=== PATIENT | female | born 2000 | race Caucasian/White ===

== ENCOUNTER 2022-10-19 13:22 | Emergency (ER) | payer BC ==
[~2022-10-19] VITALS: Ht 182.9 cm; Wt 104.5 kg
[2022-10-19 14:33] LABS: BASO % 0.3 % (0.0-1.0); EOS # 0.2 10^3/uL (0.0-0.5); EOS % 2.5 % (0.0-3.0); HEMATOCRIT 41.7 % (36.0-47.0); HEMOGLOBIN 13.6 g/dl (12.0-15.5); LYMPH # 1.2 10^3/uL (1.5-5.0); LYMPH % 18.6 % (24.0-44.0); MEAN CORPUSCULAR HEMOGLOBIN 27.8 pg (27.0-33.0); MEAN CORPUSCULAR HGB CONC 32.6 g/dl (32.0-36.5); MEAN CORPUSCULAR VOLUME 85.3 fl (80.0-96.0); MONO # 0.4 10^3/uL (0.0-0.8); NEUTROPHILS # 4.6 10^3/uL (1.5-8.5); NEUTROPHILS % 72.3 % (36.0-66.0); PLATELET COUNT, AUTOMATED 312 10^3/uL (150-450); RED BLOOD COUNT 4.89 10^6/uL (4.00-5.40); WHITE BLOOD COUNT 6.3 10^3/uL (4.0-10.0)
[2022-10-19] MEDS ORDERED: NS 1,000 ML IV ONE (14:50)
[2022-10-19 15:05] LABS: RSV AMPLIFICATION NEGATIVE (NEGATIVE)
[2022-10-19 15:07] LABS: FREE T4 1.26 NG/DL (0.89-1.76); THYROID STIMULATING HORMONE 0.601 uIU/ML (0.55-4.78)
[2022-10-19] MEDS ORDERED: ONDANSETRON 4MG 2ML VIAL IV ONE (15:35)
[2022-10-19 16:48] VITALS: BP 138/82
== END 2022-10-19 17:11 | disposition home or self-care (01) ==
LOC: M ED 13:22
DX: S00.83XA Contusion of other part of head, initial encounter (principal); W19.XXXA Unspecified fall, initial encounter; Y92.89 Other specified places as the place of occurrence of the external cause; Y93.89 Activity, other specified; Y99.8 Other external cause status; C73 Malignant neoplasm of thyroid gland
CPT/HCPCS: 70450; 70486; 80047; 81001; 84439; 84443; 84702; 85025; 87631; 93005; 93041; 94760; 96374; 99284; J2405

== ENCOUNTER → 2023-06-10 | Outpatient (REF) ==
[2023-06-11 08:10] LABS: RUBEOLA IgG ANTIBODY 78.3 AU/mL (Immune >16.4)
== END ==
LOC: M LAB 09:46
PROVIDERS: ATTEND Nurse Practitioner Adult Health
DX: Z00.00 Encounter for general adult medical examination without abnormal findings (principal)

== ENCOUNTER → 2023-08-02 | Outpatient (REF) | LOC: M EMP 08:10 | PROVIDERS: ATTEND Family Medicine | DX: Z11.52 Encounter for screening for COVID-19 (principal) ==

== ENCOUNTER 2023-08-15 14:06 | Emergency (ER) | payer OTHER, BC ==
[~2023-08-15] VITALS: Ht 182.9 cm; Wt 90.9 kg
[2023-08-15 14:07] VITALS: BP 149/91; TEMP 98.2; O2SAT 99
[2023-08-15] MEDS ORDERED: BACITRACIN OINTMENT 30GM TUBE TOP ONE (15:20)
[2023-08-15] MEDS ORDERED: BACI28.417 TOP (15:27)
== END 2023-08-15 15:33 | disposition home or self-care (01) ==
LOC: M ED 14:06
DX: T22.112A Burn of first degree of left forearm, initial encounter (principal); T22.212A Burn of second degree of left forearm, initial encounter; Z77.098 Contact with and (suspected) exposure to other hazardous, chiefly nonmedicinal, chemicals; Y92.9 Unspecified place or not applicable; Y93.9 Activity, unspecified; Y99.0 Civilian activity done for income or pay; T31.0 Burns involving less than 10% of body surface

== ENCOUNTER 2023-11-25 13:29 | Emergency (ER) | payer OTHER, BC ==
[~2023-11-25] VITALS: Ht 182.9 cm; Wt 91.8 kg
[~2023-11-25 13:29] MED LIST: BACI28.417 TOP
[2023-11-25] MEDS ORDERED: CEPH500C PO (16:39)
[2023-11-25] MEDS: CEPHALEXIN 500 MG CAP PO ONE (16:49)
[2023-11-25] MEDS: BOOSTRIX VACCINE (TETANUS/DIPHTH/ACEL. PERTUSSIS) 0.5ML SYR IM ONE (16:50)
[2023-11-25] MEDS: NEOSPORIN TOP OINT 15GM TOP ONE (16:51)
[2023-11-25 17:09] VITALS: BP 150/92; TEMP 98.2; O2SAT 98
== END 2023-11-25 17:08 | disposition home or self-care (01) ==
LOC: M ED 13:29
DX: S63.613A Unspecified sprain of left middle finger, initial encounter (principal); Y92.9 Unspecified place or not applicable; Y93.9 Activity, unspecified; Y99.0 Civilian activity done for income or pay; F17.290 Nicotine dependence, other tobacco product, uncomplicated; Z91.040 Latex allergy status; Z79.2 Long term (current) use of antibiotics; Z23 Encounter for immunization

== ENCOUNTER 2024-01-16 21:43 | Emergency (ER) | payer OTHER, SELFPAY ==
[~2024-01-16] VITALS: Ht 182.9 cm; Wt 92.1 kg
[~2024-01-16 21:43] MED LIST changes: +CEPH500C PO
[2024-01-17] MEDS: ONDANSETRON 4MG ORAL DISINTEGRATING TAB PO ONE (03:10)
[2024-01-17] MEDS: IBUPROFEN 600MG TAB PO ONE (03:10)
[2024-01-17 04:03] VITALS: BP 132/74; TEMP 98; O2SAT 99
== END 2024-01-17 04:06 | disposition home or self-care (01) ==
LOC: M ED 21:43
DX: S06.9XAA Unspecified intracranial injury with loss of consciousness status unknown, initial encounter (principal); S60.222A Contusion of left hand, initial encounter; Y04.8XXA Assault by other bodily force, initial encounter; Y92.9 Unspecified place or not applicable; Y93.9 Activity, unspecified; Y99.9 Unspecified external cause status; F17.200 Nicotine dependence, unspecified, uncomplicated; Z91.040 Latex allergy status

== ENCOUNTER 2024-01-29 18:47 | Emergency (ER) | payer MEDICAID, OTHER, SELFPAY ==
[~2024-01-29] VITALS: Ht 182.9 cm; Wt 91.8 kg
[2024-01-29] MEDS: LIDOCAINE W/EPINEPHRINE 1% 20ML VIAL SC ONE (19:57)
[2024-01-29] MEDS: ONDANSETRON 4MG ORAL DISINTEGRATING TAB PO ONE (20:01)
[2024-01-29] MEDS ORDERED: CEPH500C PO (20:39)
[2024-01-29] MEDS: CEPHALEXIN 500 MG CAP PO ONE (20:40)
[2024-01-29] MEDS: NEOSPORIN OINT 0.9 GM PKT TOP ONE (20:47)
[2024-01-29 20:54] VITALS: BP 125/73; TEMP 97; O2SAT 100
== END 2024-01-29 20:55 | disposition home or self-care (01) ==
LOC: EDBD 18:47 → M ED 18:47
DX: S91.322A Laceration with foreign body, left foot, initial encounter (principal); Z18.10 Retained metal fragments, unspecified; Y92.9 Unspecified place or not applicable; Y93.9 Activity, unspecified; Y99.9 Unspecified external cause status; Z91.040 Latex allergy status; Z79.2 Long term (current) use of antibiotics

== ENCOUNTER 2024-04-16 08:02 | Emergency (ER) | payer BC, SELFPAY ==
[2024-04-16 08:09] VITALS: BP 130/77; TEMP 98.3; O2SAT 98
[2024-04-16] MEDS ORDERED: IBUP200C25 PO (09:13)
[2024-04-16] MEDS ORDERED: IBUP-1857 PO (09:13)
[2024-04-16] MEDS: KETOROLAC 30 MG/ML 1ML VIAL IM ONE (10:18)
[2024-04-16] MEDS ORDERED: KETO10TAB PO (11:04)
== END 2024-04-16 11:13 | disposition home or self-care (01) ==
LOC: M ED 08:02
DX: K08.89 Other specified disorders of teeth and supporting structures (principal); Z91.040 Latex allergy status; Z79.1 Long term (current) use of non-steroidal anti-inflammatories (NSAID); Z79.2 Long term (current) use of antibiotics
CPT/HCPCS: 96372; 99283; J1885

== ENCOUNTER → 2024-05-11 | Outpatient (REF) ==
[~2024-05-11] MED LIST changes: +IBUP-1857 PO; +IBUP200C25 PO; +KETO10TAB PO
== END ==
LOC: M EMP 09:33
PROVIDERS: ATTEND Family Medicine
DX: Z11.52 Encounter for screening for COVID-19 (principal)

== ENCOUNTER 2024-07-03 10:13 | Emergency (ER) | payer BC ==
[~2024-07-03] VITALS: Ht 182.9 cm; Wt 99.1 kg
[2024-07-03] MEDS: KETOROLAC 60MG 2ML VIAL IM ONE (11:36)
[2024-07-03] MEDS: methocarbamoL 500 MG TAB PO ONE (11:45)
[2024-07-03 11:48] VITALS: BP 134/62; TEMP 98.6; O2SAT 100
[2024-07-03] MEDS ORDERED: METH-1164 PO (12:18)
== END 2024-07-03 12:39 | disposition home or self-care (01) ==
LOC: M ED 10:13
DX: M25.512 Pain in left shoulder (principal); W00.0XXA Fall on same level due to ice and snow, initial encounter; I10 Essential (primary) hypertension; F17.210 Nicotine dependence, cigarettes, uncomplicated; Z91.040 Latex allergy status; Z79.899 Other long term (current) drug therapy; Y99.0 Civilian activity done for income or pay
CPT/HCPCS: 71101; 72072; 72110; 73030; 73502; 96372; 99283; J1885

== ENCOUNTER → 2024-07-30 | Outpatient (REF) ==
[~2024-07-30] MED LIST changes: +METH-1164 PO
== END ==
LOC: M EMP 08:49
PROVIDERS: ATTEND Family Medicine
DX: Z01.89 Encounter for other specified special examinations (principal)

== ENCOUNTER 2024-08-23 17:59 | Emergency (ER) | payer OTHER, BC ==
[~2024-08-23] VITALS: Ht 182.9 cm; Wt 102.3 kg
[2024-08-23 18:02] VITALS: TEMP 98.2
[2024-08-23] MEDS ORDERED: IBUP200T46 PO (18:08)
[2024-08-23] MEDS ORDERED: TIZA4CAP PO (21:42)
[2024-08-23] MEDS: KETOROLAC 30 MG/ML 1ML VIAL IM ONE (21:45)
[2024-08-23 22:01] VITALS: BP 140/101; O2SAT 98
== END 2024-08-23 22:01 | disposition home or self-care (01) ==
LOC: M ED 17:59
DX: R68.84 Jaw pain (principal); F17.210 Nicotine dependence, cigarettes, uncomplicated; Z91.040 Latex allergy status; Z79.1 Long term (current) use of non-steroidal anti-inflammatories (NSAID); Z79.899 Other long term (current) drug therapy
CPT/HCPCS: 96372; 99283; J1885

== ENCOUNTER 2024-12-07 15:00 | Emergency (ER) | payer OTHER, BC ==
[~2024-12-07] VITALS: Ht 185.4 cm; Wt 105.6 kg
[~2024-12-07 15:00] MED LIST changes: +IBUP200T46 PO; +TIZA4CAP PO
[2024-12-07 15:02] VITALS: TEMP 98.1
[2024-12-07] MEDS ORDERED: NAPR-837 PO (18:37)
[2024-12-07] MEDS: ACETAMINOPHEN 325 MG TAB PO ONE (18:40)
[2024-12-07] MEDS: NAPROXEN 250 MG TAB PO ONE (18:41)
[2024-12-07 18:44] VITALS: BP 142/84; O2SAT 97
== END 2024-12-07 18:46 | disposition home or self-care (01) ==
LOC: M ED 15:00
DX: S46.012A Strain of muscle(s) and tendon(s) of the rotator cuff of left shoulder, initial encounter (principal); Y92.9 Unspecified place or not applicable; Y93.9 Activity, unspecified; Y99.0 Civilian activity done for income or pay; Z91.048 Other nonmedicinal substance allergy status; Z91.040 Latex allergy status; Z79.899 Other long term (current) drug therapy

== ENCOUNTER → 2025-01-27 | Outpatient (REF) ==
[~2025-01-27] MED LIST changes: +NAPR-837 PO
== END ==
LOC: M EMP 13:16
PROVIDERS: ATTEND Family Medicine
DX: Z01.89 Encounter for other specified special examinations (principal)

== ENCOUNTER → 2025-01-29 | Outpatient (REF) | LOC: M EMP 14:12 | PROVIDERS: ATTEND Family Medicine | DX: Z01.89 Encounter for other specified special examinations (principal) ==

== ENCOUNTER → 2025-05-06 | Outpatient (REF) | LOC: M EMP 11:47 | PROVIDERS: ATTEND Family Medicine | DX: Z11.52 Encounter for screening for COVID-19 (principal) ==